=== PATIENT | male | born 1975 ===

== ENCOUNTER 2019-01-30 13:53 | Emergency (ER) | payer MEDICAID ==
[~2019-01-30] VITALS: Ht 170.2 cm; Wt 65.0 kg
[2019-01-30 13:56] VITALS: BP 127/80
--- NOTE | 2019-01-30 15:12 | NUR ---
PATIENT AMBULATORY TO [facility] WITH C/O NEEDING A WORK UP AND THINKS HE WAS EXPOSED TO ILLNESS. PATIENT DOES NOT WANT TO DISCUSS PROBLEM WITH NURSE AND STATES HE WILL DISCUSS HIS PROBLEMS WITH THE DOCTOR. DENIES MEDICAL HISTORY AND SAYS HE IS PERFECTLY HEALTHY.
[2019-01-30] MEDS ORDERED: LORazepam 1 MG tablet PO ONE (15:30)
== END 2019-01-30 15:45 | disposition home or self-care (01) ==
LOC: ER 13:53
DX: F41.9 Anxiety disorder, unspecified (principal); Z59.0 Homelessness; Z56.0 Unemployment, unspecified
CPT/HCPCS: 99284

== ENCOUNTER 2019-01-31 19:40 | Emergency (ER) | payer MEDICAID ==
[~2019-01-31] VITALS: Ht 170.2 cm; Wt 62.8 kg
[2019-01-31 19:43] VITALS: BP 116/82
--- NOTE | 2019-01-31 20:32 | NUR ---
PT LEFT WITHOUT DC PAPERWORK
== END 2019-01-31 20:34 | disposition home or self-care (01) ==
LOC: ER 19:40
DX: F41.9 Anxiety disorder, unspecified (principal); R10.9 Unspecified abdominal pain; R19.7 Diarrhea, unspecified; Z56.0 Unemployment, unspecified; Z59.0 Homelessness
CPT/HCPCS: 99284